=== PATIENT | male | born 1955 ===

== ENCOUNTER 2023-03-28 21:55 | Inpatient (IN) | payer MEDICARE, OTHER ==
[~2023-03-28] VITALS: Ht 182.9 cm; Wt 78.0 kg
[2023-03-28 22:52] LABS: BASOPHILS ABSOLUTE AUTO 0.04 K/mm3 (0.00-0.23); BASOPHILS PERCENT AUTO 1 % (0-2); EOSINOPHILS ABSOLUTE AUTO 0.07 K/mm3 (0.00-0.68); EOSINOPHILS PERCENT AUTO 1 % (0-6); Hematocrit 35.4 % (37.0-53.0); Hemoglobin 11.7 g/dL (13.5-17.5); IMMATURE GRAN ABSOLUTE AUTO 0.02 K/mm3 (0.00-0.10); IMMATURE GRAN PERCENT AUTO 0 % (0-1); LYMPHOCYTES ABSOLUTE AUTO 1.37 K/mm3 (0.84-5.20); LYMPHOCYTES PERCENT AUTO 17 % (21-46); MONOCYTES ABSOLUTE AUTO 0.66 K/mm3 (0.16-1.47); MONOCYTES PERCENT AUTO 8 % (4-13); Mean Corpuscular HGB 30.1 pg (26.0-34.0); Mean Corpuscular HGB Conc 33.1 g/dL (31.5-36.5); Mean Corpuscular Volume 91 fL (80-100); Mean Platelet Volume 11.4 fL (9.1-12.4); NEUTROPHILS ABSOLUTE AUTO 5.98 K/mm3 (1.96-9.15); NEUTROPHILS PERCENT AUTO 74 % (41-73); Platelet Count 320 K/mm3 (150-400); RDW Coefficient Variation 12.9 % (11.7-14.2); RDW Standard Deviation 42.5 fL (35.1-46.3); Red Blood Cell Count 3.89 M/mm3 (4.30-5.90); White Blood Cell Count 8.14 K/mm3 (4.00-11.30)
[2023-03-28 23:10] LABS: Ethanol (Alcohol), Blood, Med <3 mg/dL; Magnesium, Blood 1.9 mg/dL (1.6-2.4); Salicylate 3.1 mg/dL (2.8-20.0); Uric Acid, Blood 4.3 mg/dL (3.5-7.2)
[2023-03-28 23:19] LABS: Alanine Aminotransfer (ALT/SGP 11 U/L (12-78); Albumin, Blood 3.2 g/dL (3.4-5.0); Albumin/Globulin Ratio 0.9 (0.8-1.8); Alk Phos 94 U/L (50-136); Anion Gap 2 mmol/L (6-16); Aspartate Aminotrans (AST/SGOT 21 U/L (12-37); Bilirubin, Total 0.3 mg/dL (0.1-1.0); Blood Urea Nitrogen 6 mg/dL (8-24); Bun/Creatinine Ratio 6.7 (12.0-20.0); CO2, Blood 32 mmol/L (21-32); Calcium, Blood 8.8 mg/dL (8.5-10.1); Chloride, Blood 107 mmol/L (98-108); Creatinine, Blood 0.89 mg/dL (0.60-1.20); Globulin, Blood 3.6 g/dL (2.2-4.0); Glomerular Filtration Rate 67 (60-); Glucose, Blood 100 mg/dL (70-99); Phosphorus, Blood 1.8 mg/dL (2.5-4.9); Potassium, Blood 3.6 mmol/L (3.5-5.5); Sodium, Blood 141 mmol/L (136-145); Total Protein, Blood 6.8 g/dL (6.4-8.2)
[2023-03-28 23:20] LABS: Acetaminophen, Random <2.0 ug/mL (10.0-30.0)
[2023-03-28 23:43] LABS: Base Excess Venous -13.7 mmol/L; Bicarbonate Venous 14.1 mmol/L (24.0-30.0); PCO2 Venous 50.8 mmHg (38-42)
[2023-03-28 23:44] LABS: pH Blood Venous 7.11 (7.34-7.37)
[2023-03-29 02:40] VITALS: BP 153/77
--- NOTE | 2023-03-29 02:45 | NUR ---
ADMIT NOTE CALLED ED AND GOT REPORT FROM JOSE AT 0158. PT BROUGHT TO RM 346 AT 0220. PT BROUGHT UP IN URINE AND FECES SOILED BED. PT CLEANED UP AND BEDDING CHANGED UPON TRANSFER TO OUR MEDICAL FLOOR BED. PT INITIALLY ANSWERS QUESTIONS WITH ONE WORD ANSWERS AND HE IS SLOW TO RESPOND OR DOES NOT ANSWER QUESTIONS AT ALL. PT IS NOW STARTING TO VERBALIZE MORE. PT HAVING PAIN BUT REFUSES MEDICATION. BILAT IV'S IN AC'S. PT HAS CALL LIGHT WITHIN REACH.
[2023-03-29 04:29] LABS: Base Excess Venous 4.3 mmol/L; Bicarbonate Venous 27.7 mmol/L (24.0-30.0); PCO2 Venous 44.6 mmHg (38-42); pH Blood Venous 7.42 (7.34-7.37)
--- NOTE | 2023-03-29 04:45 | NUR ---
PT IS STARTING TO BE ABLE TO VERBALIZE MORE. PT STS HAVING PAIN. OFFERED PAIN MEDICATION AND PT DECLINED. PT KEEPS REPEATING THAT HE IS HUNGRY. PT TOLD THAT HE IS NOT ABLE TO HAVE ANY FOOD AT THIS TIME AND PT BECAME UPSET SAYING "I DON'T KNOW WHY I CAN'T HAVE SOME DAMN FOOD".
[2023-03-29 04:50] LABS: Albumin, Blood 3.1 g/dL (3.4-5.0); Albumin/Globulin Ratio 0.8 (0.8-1.8); Bilirubin, Total 0.3 mg/dL (0.1-1.0); Bun/Creatinine Ratio 9.6 (12.0-20.0); Calcium, Blood 8.5 mg/dL (8.5-10.1); Creatinine, Blood 0.73 mg/dL (0.60-1.20); Globulin, Blood 3.8 g/dL (2.2-4.0); Potassium, Blood 3.6 mmol/L (3.5-5.5); Total Protein, Blood 6.9 g/dL (6.4-8.2)
[2023-03-29 07:36] VITALS: BP 160/80
[2023-03-29 08:29] VITALS: BP 165/83
--- NOTE | 2023-03-29 08:51 | NUR ---
PT UNRESPONSIVE DURRING ST EV PT VERY AGRIVATED AND STATING HE IS HUNGRY THIS MORNING. PT SO IRRITATED THAT HE THREATENED TO WALK HOME IF WE DONT FEED HIM. PT CONFUSED, BUT AWARE OF THIS CONFUSION. PT ABLE TO TELL US HIS NAME IS SALOME AND THAT HE IS IN THE HOSPITAL. HE ALSO KNEW THE YEAR. DURING EV PT BECAME UNRESPONSIVE. APPEARED TO BE SLEEPING WITH HIS EYE CLOSED AND BREATHING DEEPLY. VITALS STABLE AT THIS TIME. LITTLE RESPONSE TO STERNAL RUB. DR. ORTIZ NOTIFIED AND IN FOR ASSESSMENT OF THE PATIENT. PT HAS LITTLE RESPONSE TO PAINFUL STIMULI. EYE OPEN, NO BLINKING. PUPILS SLUGGISH BUT REPONSIVE. STAT ST ORDERED.
[2023-03-29 10:00] LABS: Source, Urine Straight Cath
[2023-03-29 10:03] LABS: Appearance, Urine Clear (Clear); Bilirubin, Urine Neg (Neg); Blood, Urine Neg (Neg); Color, Urine Yellow (P-Yellow); Glucose Qualitative, Urine Neg (Neg); Ketones, Urine Neg (Neg); Leukocyte Esterase, Urine Neg (Neg); Nitrite, Urine Neg (Neg); Protein, Urine 1+ (Neg); Urobilinogen, Urine 1+ (Normal)
[2023-03-29 10:24] LABS: U Amphetamine Screen Not Detected; U Barbituate Screen Not Detected; U Benzodiazapine Screen Not Detected; U Buprenorphine Screen Not Detected; U Cannabinoids Screen DETECTED; U Cocaine Screen Not Detected; U Methadone Screen Not Detected; U Methamphetamine Screen Not Detected; U Opiates Screen Not Detected; U Oxycodone Screen Not Detected; U Phencyclidine Screen Not Detected
--- NOTE | 2023-03-29 13:32 | NUR ---
AGITATION PT AGITATED DUE TO BEING HUNGRY. ST ATTEMPTED TO SEE PATIENT THIS AM BUT PT WAS BECOMING UNRESPONSIVE DURING ASSESSMENT. PT MUCH MORE ALERT NOW AND STATING HE WILL WALK OUT OF HERE IF WE DONE FEED HIM. FOLLOWED BY STANDING UP AND NOT LISTENING TO STAFF TO SIT BACK DOWN. CARL TELLO CALLED. PT HELPED BACK TO BED AND RESTRAINED WITH A PRICILA VEST. ST IN ROOM TO EVAL THE PATIENT. PT NOW ABLE TO EAT FOODS AND AGREED TO STAY IN BED UNLESS STAFF IS WITH HIM. PT AGREEABLE AND COOPERATIVE NOW. POLITE AND THANKFUL FOR FOOD. RESTRAINTS DISCONTINUED 45 MINUTES AFTER BEING APPLIED.
[2023-03-29 17:07] VITALS: BP 150/74
--- NOTE | 2023-03-29 17:35 | NUR ---
SHIFT SUMMARY SINCE APPROX NOON PT HAS NOT HAD ANYMORE WITHDRAWLN/UNRESPONSIVE EPISODES. PT SLEEPING A LOT OF THE AFTERNOON. ST EVALUATED AND PT IS DOING WELL WITH HIS BITE SIZE DIET. UA OBTAINED TODAY VIA STRAIGHT CATH. SINCE PT HAS VOIDED CONTINUENTLY, WITH SOME DIFFICUTLY STARTING A STREAM. [facility] INFO TO SEND RELATED TO THE PATIENT. SEE FAX ON PHYSICAL CHART. CASE MANAGMENT STILL TRYING TO FIND RECORDS OF THE PATIENT. PT STATES HIS NAME IS SALOME VILLAFANA AND HIS DATE OF IS 1955. PT PLEASANT & COOPERATIVE SINCE BEING ABLE TO EAT. NO OTHER ACUTE CHANGES IN ASSESSMENT AT THIS TIME. CALL LIGHT IN REACH.
[2023-03-29 19:29] VITALS: BP 151/69
[2023-03-30 05:09] VITALS: BP 136/81
--- NOTE | 2023-03-30 06:40 | NUR ---
SHIFT SUMMARY: PT IS ADMITTED FOR METS TO THE BRAIN AND IS A FULL CODE. IS ALERT AND ABLE TO MAKE NEEDS KNOWN. ADLs HAVE BEEN 1P THROUGH SHIFT BUT HAD NOT GOTTEN OUT OF BED. IVS TO BILAT AC ARE PATENT WITH DRESSING THAT ARE CDI. JOSEPHMyra REPORTS SINUS @ 57
[2023-03-30 07:24] VITALS: BP 141/71
[2023-03-30 08:46] LABS: BASOPHILS ABSOLUTE AUTO 0.01 K/mm3 (0.00-0.23); BASOPHILS PERCENT AUTO 0 % (0-2); EOSINOPHILS PERCENT AUTO 0 % (0-6); Hematocrit 33.6 % (37.0-53.0); Hemoglobin 11.2 g/dL (13.5-17.5); IMMATURE GRAN ABSOLUTE AUTO 0.06 K/mm3 (0.00-0.10); IMMATURE GRAN PERCENT AUTO 0 % (0-1); LYMPHOCYTES ABSOLUTE AUTO 0.73 K/mm3 (0.84-5.20); LYMPHOCYTES PERCENT AUTO 4 % (21-46); MONOCYTES ABSOLUTE AUTO 0.51 K/mm3 (0.16-1.47); MONOCYTES PERCENT AUTO 3 % (4-13); Mean Corpuscular HGB 30.3 pg (26.0-34.0); Mean Corpuscular HGB Conc 33.3 g/dL (31.5-36.5); Mean Corpuscular Volume 91 fL (80-100); Mean Platelet Volume 11.3 fL (9.1-12.4); NEUTROPHILS ABSOLUTE AUTO 16.93 K/mm3 (1.96-9.15); NEUTROPHILS PERCENT AUTO 93 % (41-73); Platelet Count 324 K/mm3 (150-400); RDW Coefficient Variation 12.9 % (11.7-14.2); RDW Standard Deviation 42.6 fL (35.1-46.3); White Blood Cell Count 18.24 K/mm3 (4.00-11.30)
[2023-03-30 09:06] LABS: Albumin/Globulin Ratio 0.8 (0.8-1.8); Bilirubin, Total 0.2 mg/dL (0.1-1.0); Bun/Creatinine Ratio 16.1 (12.0-20.0); Calcium, Blood 8.7 mg/dL (8.5-10.1); Creatinine, Blood 0.75 mg/dL (0.60-1.20); Globulin, Blood 3.7 g/dL (2.2-4.0); Potassium, Blood 4.2 mmol/L (3.5-5.5); Total Protein, Blood 6.7 g/dL (6.4-8.2)
--- NOTE | 2023-03-30 13:41 | NUR ---
Attempted to visit with patient, introduced myself. He stated he "hoped I wasn't trying to cheer him up", and told me he is "going to ." Tears fell down his face, but he remained expressionless and did not respond to anything I commented or asked about. This continued for approx 25 min. I left a business card with him, and he did not comment further.
--- NOTE | 2023-03-30 13:53 | NUR ---
The patient has been complaining of discomfort from the IV's, stating he want's to "Pull them out, and soon." His medications have been changed from IV to PO. Received an order from Dr. Hernandez to d/c IV's and passed this to bedside RN.
[2023-03-30 15:55] VITALS: BP 139/70
--- NOTE | 2023-03-30 16:58 | NUR ---
SHIFT SUMMARY- PT IS ALERT, PLESANT AND COOPERATIVE. HIS MENTATION IS CLEARER THAN INDICATED IN PREVOIUS CHARTING. PT REPORTS NOT REMEMBERING MUCH BEFORE HE WAS IN THE HOSPITAL. HE C/O OF DISCOMFORT WITH THE IV SITES, DISCUSSED WITH DR ORTIZ AND IV'S WERE REMOVED AND MEDICAIONS WERE SWITCHED TO ORAL. PALLATIVE CARE WAS CONSULTED AND SPOKE WITH THE PT THIS MORNING. HE AMBULATED TO THE RESTROOM THIS SHIFT. HE SLEPT INTERMITENTLY THROUGHTOUT THIS SHIFT. HIS BED IS IN THE LOW POSITION AND CALL LIGHT IS WITIN REACH.
[2023-03-30 19:33] VITALS: BP 143/74
[2023-03-31 02:50] VITALS: BP 156/89
[2023-03-31 06:06] LABS: Bun/Creatinine Ratio 19.8 (12.0-20.0); Calcium, Blood 8.8 mg/dL (8.5-10.1); Creatinine, Blood 0.81 mg/dL (0.60-1.20); Potassium, Blood 4.4 mmol/L (3.5-5.5)
--- NOTE | 2023-03-31 06:26 | NUR ---
SHIFT SUMMARY: PT IS ADMITTED FOR METS TO THE BRAIN AND IS A FULL CODE. IS ALERT AND ABLE TO MAKE NEEDS KNOWN. ADLs HAVE BEEN 1P THROUGH SHIFT BUT HAD NOT GOTTEN OUT OF BED. MIRLANDE REPORTS SINUS @ 58. STATED THAT HE WAS IN SOME PAIN OR DISCOMFORT 4/10 MAYBE BUT WAS NOTED TO BE TEARFUL. HE STATED THAT HE HURT EVERYWHERE. WHEN ASKED IF HE WANTED SOMETHING FOR THE PAIN HE STATED I AM GOING TO TOUGH IT OUT HE ALSO FOLLOWED UP WITH I M NOT SURE IF MY PAIN IS PHYSICAL OR NOT. I M NOT GOING TO LIVE. 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 AND HE MIGHT BE THINKING ABOUT SOME OF THOSE EVENTS TO CAUSE THE TEARFULNESS IN ADDITION TO CURRENT EVENTS.
[2023-03-31 07:52] VITALS: BP 133/61
--- NOTE | 2023-03-31 16:31 | NUR ---
Spiritual care visit conducted. Long visit with patient today. He tells about his experience in [place], his struggles with his neighbors, his reflections on life and much discussion about end of life. Patient is tearful at times and yet became more hopeful as we explore ways of finding meaning and purpose. I normalize his struggles and feelings, reinforce helpful perspectives and provide therapeutic listening and a calming presence. Theodore responded well and showed an increase in hope
[2023-03-31 16:53] VITALS: BP 167/75
--- NOTE | 2023-03-31 18:17 | NUR ---
SHIFT SUMMARY: PT A/O X 1-2, ONE ASSIST WITH WALKER AND GB. PT HAS BEEN TEARFUL ON AND OFF THROUGHOUT THE DAY REGARDING HIS DIAGNOSIS. PT SPOKE TO CERTIFIED NEURODIAGNOSTIC TECHNOLOGIST TODAY AND APPEARED TO BE HELPFUL. PT EATING WELL, DOES REPORT DISCOMFORT "ALL OVER" BUT REFUSES ANY KIND OF OFFER OF PAIN MEDICATION INCLUDING TYLENOL. APPEARS TO DO BETTER AFTER DEXAMETHASONE GIVEN. PT REPORTED HEART BURN THIS EVENING AND TUMS ORDER RECEIVED FROM DR. MARTINEZ. NO FURTHER COMPLAINTS AT THIS TIME.
[2023-03-31 20:04] VITALS: BP 133/70
[2023-04-01 05:06] VITALS: BP 176/81
--- NOTE | 2023-04-01 05:13 | NUR ---
SHIFT SUMMARY 67 YR M ADMITTED ON 03/29/23 FOR METASTASIS TO BRAIN. FULL CODE. NO ACUTE CHANGES THIS SHIFT. PT MOOD HAS BEEN SOLEMN THIS SHIFT. HE WILL TAKE ORAL MEDS BUT STATES THAT HE DOES NOT WANT ANYTHING THROUGH A NEEDLE. NO C/O PAIN OR DISCOMFORT THIS SHIFT. PT HAS SLEPT OFF AND ON THROUGHOUT SHIFT.
[2023-04-01 07:43] VITALS: BP 151/83
[2023-04-01 15:45] VITALS: BP 170/81
[2023-04-01 15:46] VITALS: BP 170/81
--- NOTE | 2023-04-01 17:24 | NUR ---
SHIFT SUMMARY: PT A/O X 3, STANDBY ASSIST WITH WALKER. PLEASANT AND COOPERATIVE. PT LESS TEARFUL TODAY WHEN DISCUSSING HIS ILLNESS. PT REPORTS HE DOES NOT REMEMBER ANYTHING BEYOND YESTERDAY. TOLERATING MEDICATIONS, REPORTS MILD TOLERABLE PAIN "ALL OVER ACHES AND HERNIA PAIN". PT REFUSES OFFER OF PAIN MEDICATIONS AT THIS TIME. PT IS AWARE HIS BLOOD PRESSURE IS ELEVATED AND STATES "IT'S BECAUSE I AM UNDER A LOT OF STRESS RIGHT NOW." OVERHEARD DR. ORTIZ DISCUSSING WITH PT AND PT STATED "I WON'T TAKE MEDICATIONS FOR MY BLOOD PRESSURE." PT IS ASYMPTOMATIC DENIES CP/PRESSURE THROUGHOUT THE DAY.
[2023-04-01 19:30] VITALS: BP 182/79
[2023-04-01 20:37] VITALS: BP 169/84
[2023-04-02 02:55] VITALS: BP 153/80
[2023-04-02 07:50] VITALS: BP 145/89
[2023-04-02 15:46] VITALS: BP 151/89
--- NOTE | 2023-04-02 16:32 | NUR ---
SHIFT SUMMARY: PATIENT A/O TO SELF, PLACED AND CURRENT SITUATIONS. PATIENT APPEARS DEPRESSED, PLEASANT AND COOPERATIVE c CARE. PATIENT WAS TEARFUL AT BEGINNING OF SHIFT, REPORTS "I DON'T WANNA , BUT I'M DYING ALONE. I DON'T HAVE FAMILY AND NO KIDS." EDUCATE PATIENT c PLAN OF CARE. PATIENT VERBALIZES UNDERSTANDING AND NO FURTHER QUESTIONS AT THIS TIME. PATIENT HAS NO S/S OF SEIZURE ACTIVITY THIS SHIFT. PATIENT DENIES CP/PRESSURE, N/V, DIZZINESS AND SOB. PATIENT HAS GOOD APPETITE, CONTINENCE OF BLADDER AND AMBULATES TO BATHROOM/BACK IN BED c SBA/1P ASSIST, GAITBELT AND FWW. PATIENT RECEIVED SCHEDULED MEDS PER EMAR, VITAL SIGNS REVIEWED. NO IV ACCESS PER ORDER. BED ALARM ON FOR SAFETY. CALL LIGHT IN REACH.
[2023-04-02 21:18] VITALS: BP 164/82
[2023-04-03 03:55] VITALS: BP 148/89
[2023-04-03 07:42] VITALS: BP 155/87
--- NOTE | 2023-04-03 10:47 | NUR ---
Spoke with Primary RN Lola and discussed case. Dr Esparza reports Pt may benefit from considering hospice as he has no intention to pursue treatment for his cancer. Pt resting in bed upon arrival. Pt A&OX3-4. Engaged in therapeutic conversation regarding goals of care. Discussed considering hospice services. Educated on hospice philosophy with V/U made by Pt. Pt is agreeable to hospice services and reports no preference. Pt does state he can not remember where he lives. Discussed code status wishes. Educated on life sustaining treatments including risks and implications to CPR/Intubation. Pt reports his wishes are DNR. Spoke with Dr Esparza and discussed case. Placed DNR order for Pt in [facility] and hospice referral per V/O from Dr Esparza. Will discuss case with RN Agricultural Real Estate Agent. Palliative Care will remain available
[2023-04-03 15:23] VITALS: BP 155/89
--- NOTE | 2023-04-03 16:02 | NUR ---
SHIFT SUMMARY: PATIENT IS A/OX3, FORGETFUL, SBA, FWW c AMBULATION TO BATHROOM. PATIENT CONTINUES TO APPEAR DEPRESSED, PLEASANT AND COOPERATIVE c CARE. PATIENT REPORTS "FEELING BETTER TODAY COMPARED YESTERDAY." PATIENT EXPRESSES "DOES NOT WANNA PURSUE ANY TX c REGARDS TO HIS CANCER." THIS RN SPOKE TO DR. YO, RECEIVED ORDER TO CALL PALLIATIVE NURSE. THIS RN NOTIFIED BRUNO PALLIATIVE CARE RN. BRUNO SPOKE TO PATIENT AT BEDSIDE REGARDING PLAN OF CARE, PATIENT IS AGREEABLE TO HOSPICE SERVICES. PATIENT CODE STATUS CHANGED TO DNR. PATIENT HAS EXCELLENT APPETITE THIS SHIFT, RECEIVED SCHEDULED MEDS PER EMAR. VITAL SIGNS REVIEWED. NO IV ACCESS PER ORDER. BED ALARM ON FOR SAFETY. CALL LIGHT IN REACH.
[2023-04-03 20:39] VITALS: BP 148/80
[2023-04-04 02:33] VITALS: BP 166/94
--- NOTE | 2023-04-04 04:26 | NUR ---
SHIFT SUMMARY PT A&OX4 AND CALLS APPROPRIATELY. PT IS SLOW TO RESPOND WHEN ASKED QUESTIONS AND HAS BOUTS OF TEARING UP. PT BP WAS ELEVATED AND THE PT COMPLAINS OF A HEADACHE BUT REFUSES ANY MEDICATIONS TO ASSIST WITH PAIN. PT SLEPT MOST OF NIGHT. NO ACUTE EVENTS DURING SHIFT. PT LEFT IN A POSITION OF SAFETY WITH SAFETY MEASURES IN PLACE AND CALL LIGHT IN REACH.
[2023-04-04 08:01] VITALS: BP 146/83
[2023-04-04 08:02] VITALS: BP 146/83
[2023-04-04 15:33] VITALS: BP 137/89
--- NOTE | 2023-04-04 17:59 | NUR ---
SHIFT SUMMARY: PT IS A 67 YEAR OLD MALE HERE INITIATING HOSPICE CARE AFTER RECEIVING A METASTATIC LUNG CANCER DIAGNOSIS. HE IS CURRENTLY LIVING AT THE [place] [id number] AND CARE COORDINATION IS WORKING ON PATIENT RECEIVING [facility] CARE THERE AND IF MORE CARE IS NEEDED [place] WILL PAY FOR [place] TO CONTINUE HOSPICE CARE AT A SNF: [facility] OR [facility]. HE HAS BEEN DEPRESSION AND SPOUTS OF CRYING THROUGHOUT THE SHIFT. MANY ATTEMPTS MADE TO HELP CONSOLE HIM AND ALL ATTEMPTS/OFFERED REFUSED. HE IS PLEASANT AND COOPERATIVE WITH CARE OTHERWISE. HE WILL AMBULATE TO THE RESTROOM INDEPENDENTLY AND WILL USE HIS CALL LIGHT FOR ASSISTANCE. AWAITING DISCHARGE. PLAN OF CARE ONGOING.
[2023-04-04 19:18] VITALS: BP 157/85
--- NOTE | 2023-04-05 04:09 | NUR ---
SHIFT SUMMARY ADMITTED FOR CANCER METASTASIS TO BRAIN. DNR CODE. PLAN IS FOR DC TO [facility] VS. [facility]AC[facility]OSPICE[facility]. STANDBY ASSIST W/BRP. A&O X3. SOFT BITE SIZE DIET. ON RA. BOWEL CARE GIVEN THIS SHIFT. NO NEW CONCERNS
[2023-04-05 05:49] VITALS: BP 156/83
[2023-04-05 07:54] VITALS: BP 155/83
[2023-04-05] MEDS ORDERED: DECADRON4 M1 PO (11:22)
[2023-04-05] MEDS ORDERED: LEVE500 PO (11:23)
[2023-04-05] MEDS ORDERED: Nicoderm Cq1 EAC1 TOP (11:23)
[2023-04-05] MEDS ORDERED: DOCU100 PO (11:23)
[2023-04-05] MEDS ORDERED: SENN187 PO (11:23)
--- NOTE | 2023-04-05 14:05 | NUR ---
DISCHARGE NOTE: DISCHARGE WENT OVER WITH PATIENT AND INFORMATION PROVIDED ON MEDICAL TRANSPORTATION AND CONTACT NUMBER FOR MEDICAID TO SEE ABOUT ABOUT BENEFITS FOR MEDICAL TRANSPORT. INFORMATION OF PROVIDERS TAKING PATIENTS PROVIDED WELL. [facility] WILL BE MEETING WITH THE PATIENT TOMORROW. HIS BELONGINGS WERE COLLECTED, HE GOT DRESSED, AND HE WAS TRANSPORTED VIA WHEELCHAIR BY STAFF. GREETED BY PRODUCTION LINE OPERATOR BY [place] AD[address], HE TOOK THE PATIENT. NO SIGNS OR SYMPTOMS OF DISTRESS DURING DISCHARGE.
== END 2023-04-05 14:00 | disposition hospice, home (50) | DRG 54 ==
LOC: ER 21:55 → EDBD 03-29 01:51 → MEDS 03-29 01:51
PROVIDERS: Emergency Medicine; Internal Medicine; Student in an Organized Health Care Education/Training Program; ADMIT Internal Medicine
DX: C79.31 Secondary malignant neoplasm of brain (principal); G92.8 Other toxic encephalopathy; G93.6 Cerebral edema; C78.02 Secondary malignant neoplasm of left lung; C78.01 Secondary malignant neoplasm of right lung; C78.6 Secondary malignant neoplasm of retroperitoneum and peritoneum; E87.20 Acidosis, unspecified; Z51.5 Encounter for palliative care; Z66 Do not resuscitate; C80.1 Malignant (primary) neoplasm, unspecified; D72.819 Decreased white blood cell count, unspecified; R00.1 Bradycardia, unspecified
CPT/HCPCS: 36415; 70450; 70470; 71045; 71260; 72125; 74177; 80048; 80053; 82140; 82803; 82947; 83605; 83690; 83735; 84100; 84443; 84550; 85025; 85730; 92526; 92610; 93005; 93010; 94760; 94762; 96365; 96375-59; 96376-59; 99285-25; A9270; G0480; J1100; J1953; L0160; Q9967

== ENCOUNTER 2023-05-03 18:29 | Observation (INO) | payer OTHER, MEDICARE ==
[~2023-05-03] VITALS: Ht 182.9 cm; Wt 72.6 kg
[~2023-05-03 18:29] MED LIST: DECADRON4 M1 PO; DOCU100 PO; LEVE500 PO; Nicoderm Cq1 EAC1 TOP; SENN187 PO
[2023-05-03 22:33] LABS: BASOPHILS ABSOLUTE AUTO 0.04 K/mm3 (0.00-0.23); BASOPHILS PERCENT AUTO 0 % (0-2); EOSINOPHILS PERCENT AUTO 0 % (0-6); Hemoglobin 12.9 g/dL (13.5-17.5); IMMATURE GRAN ABSOLUTE AUTO 0.24 K/mm3 (0.00-0.10); IMMATURE GRAN PERCENT AUTO 2 % (0-1); LYMPHOCYTES ABSOLUTE AUTO 0.61 K/mm3 (0.84-5.20); LYMPHOCYTES PERCENT AUTO 4 % (21-46); MONOCYTES ABSOLUTE AUTO 0.41 K/mm3 (0.16-1.47); MONOCYTES PERCENT AUTO 3 % (4-13); Mean Corpuscular HGB 29.7 pg (26.0-34.0); Mean Corpuscular HGB Conc 32.3 g/dL (31.5-36.5); Mean Corpuscular Volume 92 fL (80-100); Mean Platelet Volume 10.6 fL (9.1-12.4); NEUTROPHILS ABSOLUTE AUTO 13.97 K/mm3 (1.96-9.15); NEUTROPHILS PERCENT AUTO 91 % (41-73); Platelet Count 349 K/mm3 (150-400); RDW Standard Deviation 47.7 fL (35.1-46.3); Red Blood Cell Count 4.34 M/mm3 (4.30-5.90); White Blood Cell Count 15.27 K/mm3 (4.00-11.30)
[2023-05-03 23:06] LABS: Bicarbonate Venous 28.4 mmol/L (24.0-30.0); PCO2 Venous 42.5 mmHg (38-42); pH Blood Venous 7.44 (7.34-7.37)
[2023-05-03 23:43] LABS: Acetaminophen, Random <2.0 ug/mL (10.0-30.0); Alanine Aminotransfer (ALT/SGP 21 U/L (12-78); Albumin, Blood 2.9 g/dL (3.4-5.0); Albumin/Globulin Ratio 0.8 (0.8-1.8); Alk Phos 75 U/L (50-136); Anion Gap 4 mmol/L (6-16); Aspartate Aminotrans (AST/SGOT 18 U/L (12-37); Bilirubin, Total 0.2 mg/dL (0.1-1.0); Blood Urea Nitrogen 14 mg/dL (8-24); Bun/Creatinine Ratio 18.8 (12.0-20.0); CO2, Blood 30 mmol/L (21-32); Calcium, Blood 8.8 mg/dL (8.5-10.1); Chloride, Blood 105 mmol/L (98-108); Creatinine, Blood 0.74 mg/dL (0.60-1.20); Ethanol (Alcohol), Blood, Med <3 mg/dL; Globulin, Blood 3.8 g/dL (2.2-4.0); Glomerular Filtration Rate 101 (60-); Glucose, Blood 109 mg/dL (70-99); Potassium, Blood 4.3 mmol/L (3.5-5.5); Salicylate 3.8 mg/dL (2.8-20.0); Sodium, Blood 139 mmol/L (136-145); Total Protein, Blood 6.7 g/dL (6.4-8.2)
[2023-05-04 05:29] LABS: BASOPHILS ABSOLUTE AUTO 0.02 K/mm3 (0.00-0.23); BASOPHILS PERCENT AUTO 0 % (0-2); EOSINOPHILS PERCENT AUTO 0 % (0-6); Hemoglobin 11.8 g/dL (13.5-17.5); IMMATURE GRAN ABSOLUTE AUTO 0.13 K/mm3 (0.00-0.10); IMMATURE GRAN PERCENT AUTO 1 % (0-1); LYMPHOCYTES PERCENT AUTO 13 % (21-46); MONOCYTES ABSOLUTE AUTO 0.93 K/mm3 (0.16-1.47); MONOCYTES PERCENT AUTO 7 % (4-13); Mean Corpuscular HGB 29.6 pg (26.0-34.0); Mean Corpuscular HGB Conc 32.8 g/dL (31.5-36.5); Mean Corpuscular Volume 91 fL (80-100); Mean Platelet Volume 10.1 fL (9.1-12.4); NEUTROPHILS ABSOLUTE AUTO 11.38 K/mm3 (1.96-9.15); NEUTROPHILS PERCENT AUTO 79 % (41-73); Platelet Count 338 K/mm3 (150-400); RDW Coefficient Variation 14.1 % (11.7-14.2); RDW Standard Deviation 46.5 fL (35.1-46.3); Red Blood Cell Count 3.98 M/mm3 (4.30-5.90); White Blood Cell Count 14.36 K/mm3 (4.00-11.30)
[2023-05-04 05:50] LABS: Albumin, Blood 2.8 g/dL (3.4-5.0); Albumin/Globulin Ratio 0.7 (0.8-1.8); Bilirubin, Total 0.4 mg/dL (0.1-1.0); Creatinine, Blood 0.74 mg/dL (0.60-1.20); Globulin, Blood 3.8 g/dL (2.2-4.0); Potassium, Blood 4.5 mmol/L (3.5-5.5); Total Protein, Blood 6.6 g/dL (6.4-8.2)
[2023-05-04 06:36] LABS: Source, Urine Clean Catch
[2023-05-04 07:04] LABS: Appearance, Urine Clear (Clear); Bilirubin, Urine Neg (Neg); Blood, Urine Neg (Neg); Color, Urine Yellow (P-Yellow); Glucose Qualitative, Urine Neg (Neg); Ketones, Urine Neg (Neg); Leukocyte Esterase, Urine Neg (Neg); Nitrite, Urine Neg (Neg); Protein, Urine Neg (Neg); Specific Gravity, Urine 1.015 (1.003-1.022); Urobilinogen, Urine NORM (Normal)
[2023-05-04 13:00] VITALS: BP 128/71
== END 2023-05-04 14:30 ==
LOC: ER 18:29 → ERHOLD 18:30
PROVIDERS: Emergency Medicine; ADMIT Student in an Organized Health Care Education/Training Program
DX: R56.9 Unspecified convulsions (principal); C80.1 Malignant (primary) neoplasm, unspecified; C79.31 Secondary malignant neoplasm of brain; Z79.899 Other long term (current) drug therapy
CPT/HCPCS: 51798; 70450; 80053; 81003; 82803; 82947; 83605; 83735; 84443; 85025; 93005; 93010; 96365; 96372-59; 96376; 99285-25; G0480; J1650; J1953; J7120